=== PATIENT | male | born 2000 | race Asian ===

== ENCOUNTER 2019-04-10 19:17 | Inpatient (IN) | payer OTHER ==
[~2019-04-10] VITALS: Ht 182.9 cm; Wt 74.8 kg
[2019-04-10 19:17] VITALS: BP_SYST 146
--- NOTE | 2019-04-10 19:17 | NUR ---
BROUGHT IMMEDIATELY BACK TO BED #6 AND TRIAGED. REPORT GIVEN TO ASHUTOSH
--- NOTE | 2019-04-10 19:28 | NUR ---
patient arrived aox4 with c/o left sided chest pain. patient states "I have a history of spontaneous pneumothorax." patients lungs are CTA bilaterally. patient has an even and unlabored breathing pattern. patient vapes regularly. denies vaping at the time of chest pain. no other complaint or injury at this time.
--- NOTE | 2019-04-10 19:28 | NUR ---
Patient to ER bed 06 to gown for evaluation. Side rails up.
[2019-04-10 20:27] LABS: ANION GAP 8 (5-15); CHLORIDE 107 mmol/L (98-107); CREATININE 1.15 mg/dL (0.55-1.30); GLUCOSE 108 mg/dL (70-99); POTASSIUM 3.6 mmol/L (3.5-5.1); SODIUM SERUM 142 mmol/L (136-145); UREA NITROGEN, BLOOD 15 mg/dL (8-21)
[2019-04-10 20:29] LABS: BASOPHILS % (AUTO) 0.6 % (0.0-2.0); EOSINOPHILS % (AUTO) 0.7 % (0.0-4.0); HEMATOCRIT 44.1 % (36-54); HEMOGLOBIN 15.3 g/dL (14.0-18.0); LYMPHOCYTES # (AUTO) 1.2 K/uL (1.0-5.5); LYMPHOCYTES % (AUTO) 23.4 % (20.5-51.5); MEAN CORPUSCULAR HEMOGLOBIN 32 pg (27-31); MEAN CORPUSCULAR HGB CONC 35 % (32-36); MEAN CORPUSCULAR VOLUME 92 fL (79.0-98.0); MONOCYTES # (AUTO) 0.3 K/uL (0.0-1.0); MONOCYTES % (AUTO) 5.4 % (1.7-9.3); NEUTROPHILS # (AUTO) 3.5 K/uL (1.8-7.7); NEUTROPHILS % (AUTO) 69.9 % (40.0-70.0); PLATELET COUNT (AUTO) 141 K/uL (130-430); RED BLOOD CELL COUNT(AUTO) 4.81 MIL/uL (4.2-6.2); RED CELL DISTRIBUTION WIDTH 12.5 % (9.0-15.0)
[2019-04-10 20:31] LABS: GFR AFRICAN AMERICAN 105 mL/min (>90)
[2019-04-10 20:36] LABS: ALANINE AMINOTRANSFERASE 14 U/L (12-78); ALBUMIN 4.4 g/dL (3.4-4.8); ASPARTATE AMINOTRANSFERASE 15 U/L (10-37); LIPASE 124 U/L (73-393); TOTAL BILIRUBIN 0.7 mg/dL (0.0-1.0)
--- NOTE | 2019-04-10 22:06 | NUR ---
ER at bedside examining patient.
--- NOTE | 2019-04-10 22:45 | NUR ---
# 20 gauge angiocath placed to LAC. Use of asceptic technique. Opsite placed over site. Blood return noted. Blood for lab drawn from site. Flushed with 10 cc of normal saline. No evidence of infiltration noted. Patient tolerated well.
--- NOTE | 2019-04-10 23:10 | NUR ---
Patient will be admitted to care of Dr. Reardon. Admitted to Tele unit. Will go to room 125B. Belongings list completed. Summary report printed. Report will be given at bedside.
--- NOTE | 2019-04-10 23:15 | NUR ---
Admission Note Received patient from ER with diagnosis of pneumothorax. Initial Plan of Care discussed-patient verbalized understanding. Oriented to room, call light, pain management and safety.
[2019-04-10 23:25] VITALS: BP_SYST 124
[2019-04-11] MEDS: ACETAMINOPHEN 325 MG TABLET PO PRN ×2 (00:17→14:37)
[2019-04-11] MEDS: traMADol HCL HCL 50 MG TABLET (ULTRAM) PO PRN ×2 (01:20→08:24)
--- NOTE | 2019-04-11 01:30 | NUR ---
ROUNDS/PAIN Patient complains of 6/10 chest pain. PRN medication administered. Call light with patient. Will continue to monitor.
--- NOTE | 2019-04-11 02:48 | NUR ---
Consultation called for Yordan Cruz, re: Pneumothorax RN Carmen spoke to the doctor.
--- NOTE | 2019-04-11 03:02 | NUR ---
ROUNDS Patient sleeping at this time. No s/s of acute distress noted. Breathing even and unlabored. Call light with patient. Will continue to monitor.
--- NOTE | 2019-04-11 05:00 | NUR ---
ROUNDS Patient asleep at this time. No signs of discomfort noted. Chest rise and fall even bilaterally. Call light with patient. Will continue to monitor.
--- NOTE | 2019-04-11 06:39 | NUR ---
CLOSING NOTES Patient in bed, sleeping at this time. No s/s of acute distress noted. Breathing even and unlabored. IV site patent, no signs of infiltration or infection noted. All needs met throughout shift. Fall and safety precautions maintained throughout shift. Will continue to monitor until patient care is endorsed to oncoming dayshift nurse.
[2019-04-11 07:45] VITALS: BP_SYST 127
--- NOTE | 2019-04-11 08:16 | NUR ---
AM ROUNDS Received patient from shift foreman nurse. Patient is alert oriented x4. Breathing even and unlabored. NO respiratory distress noted. Pain scale of 4/10 during inspiration. Safety precaution in place. Oriented to staffing. Call light within reach
[2019-04-11 12:00] VITALS: BP_SYST 123
--- NOTE | 2019-04-11 12:14 | NUR ---
Thoracic Surgeon consult: Seen by Dr. ARRINGTON, discussed with patient about surgical intervention (VATS and Pleurodesis), patient and parents want to have it done in [facility] (where he's from). Per Dr. ARRINGTON patient maybe be discharged home.
--- NOTE | 2019-04-11 14:00 | NUR ---
RN ROUNDS Patient is asleep in bed. No signs of respiratory distress. NO SOB. Will continue to monitor
--- NOTE | 2019-04-11 14:41 | NUR ---
PAIN Patient verbalized pain scale of 3/10. Acetaminophen 650mg was given per MD order.
--- NOTE | 2019-04-11 16:30 | NUR ---
RN ROUNDS/ MD ROUNDS Patient was awake, NO SOB, No respiratory distress. Seen by Dr. Reardon. Patient wishes to leave against medical advice.
[2019-04-11 17:00] VITALS: BP_SYST 117
--- NOTE | 2019-04-11 17:09 | NUR ---
AMA: Patient left against medical advice after seen by Dr. Reardon.
== END 2019-04-11 17:09 | disposition left against medical advice (07) | DRG 200 ==
LOC: SED 19:17 → STU 23:08
PROVIDERS: ADMIT Internal Medicine; ATTEND Internal Medicine
DX: J93.9 Pneumothorax, unspecified (principal); Z53.21 Procedure and treatment not carried out due to patient leaving prior to being seen by health care provider; Q87.40 Marfan syndrome, unspecified
CPT/HCPCS: 36415; 71046-TC; 71250-TC; 80053; 83690-TC; 84484; 85025; 85379; 93005; 99285; G0378